=== PATIENT | female | born 1975 | race Caucasian/White ===

== ENCOUNTER 2022-10-18 09:44 | Emergency (ER) | payer BC, OTHER ==
[2022-10-18 09:56] VITALS: BMI 27.4
[2022-10-18] MEDS ORDERED: VANCOMYCIN 1 GM in D5W (PRE-DOCKED) 1,000 MG/250 ML IVPB ONE (12:24)
[2022-10-18 12:25] LABS: BASO % 0.6 % (0-2.0); HEMATOCRIT 33.9 % (32.4-45.2); HEMOGLOBIN 11.8 GM/dL (10.7-15.3); LYMPH % 17.8 % (8-40); MCH 29.6 pg (25.7-33.7); MCHC 34.7 g/dl (32.0-36.0); MEAN CELL VOLUME 85.5 fl (80-96); MEAN PLT VOLUME 7.7 fl (7.5-11.1); MONO % 5.2 % (3.8-10.2); NEUT % 74.4 % (42.8-82.8); PLATELET COUNT 230 10^3/uL (134-434); RBC 3.97 M/mm3 (3.60-5.2); RDW 13.9 % (11.6-15.6)
[2022-10-18] MEDS ORDERED: PIPERACILLIN/TAZOB 3.375 GM 3.375 GM in DEXTROSE 5%-WATER - 50 ML IVPB ONE (12:25)
[2022-10-18 12:45] LABS: CALCIUM 8.6 mg/dL (8.5-10.1)
[2022-10-18 12:46] LABS: ALBUMIN 2.9 g/dl (3.4-5.0); BLOOD UREA NITROGEN 28.8 mg/dL (7-18)
[2022-10-18 12:49] LABS: CREATININE 2.8 mg/dL (0.55-1.3)
[2022-10-18 12:51] LABS: BILIRUBIN,TOTAL 0.4 mg/dL (0.2-1)
[2022-10-18] MEDS ORDERED: VANCOMYCIN/WATER FOR INJ (PEG) 1,000 MG/200 ML BAG IVPB ONE (13:03)
[2022-10-18] MEDS ORDERED: PIPERACILLIN/TAZOB 3.375 GM 3.375 GM/50 ML BAG IVPB ONE (13:04)
[2022-10-18] MEDS ORDERED: SODIUM CHLORIDE 0.9% 1000 ML INFUS.BAG IV ONE (13:54)
[2022-10-18 15:50] VITALS: PULSE 76; TEMP 98.9
[2022-10-18 16:00] VITALS: BP 134/82; RESP 16
== END 2022-10-18 16:00 | disposition short-term general hospital (02) ==
LOC: JER 09:44
PROC: 3E033GC Introduction of Other Therapeutic Substance into Peripheral Vein, Percutaneous Approach (ICD-10-PCS; principal; 2022-10-18)
PROC: 3E033GC Introduction of Other Therapeutic Substance into Peripheral Vein, Percutaneous Approach (ICD-10-PCS; 2022-10-18)
DX: S41.101A Unspecified open wound of right upper arm, initial encounter (principal); N17.9 Acute kidney failure, unspecified; L03.113 Cellulitis of right upper limb
CPT/HCPCS: 0241U-QW; 36415; 73090-TC-RT-FY; 80053; 85025; 87040; 99285-25